=== PATIENT | male | born 1935 | race Caucasian/White ===

== ENCOUNTER 2016-10-21 10:23 | Emergency (ER) | payer MEDICARE, OTHER ==
[2016-10-21 11:05] VITALS: BP 187/109
--- NOTE | 2016-10-21 11:11 | EDM.PDOC ---
ED HPI GENERAL MEDICAL PROBLEM - General Chief Complaint: Lower Extremity Injury/Pain Stated Complaint: HURT LT BIG TOE Time Seen by Provider: 10/21/16 11:07 Source of Information: Reports: Patient History Limitations: Reports: No limitations - History of Present Illness INITIAL COMMENTS - FREE TEXT/NARRATIVE: pt stubbed his great left toe. It is bleeding around the nail and is very bruised Onset: today Duration: Hour(s): Location: Reports: lower extremity, left Associated Symptoms: Reports: denies other symptoms - Related Data Allergies Allergy/AdvReac Type Severity Reaction Status Date / Time No Known Allergies Allergy Verified 10/21/16 10:48 Home Meds: Home Meds Ascorbic Acid [Vitamin C] 1,000 mg PO DAILY 01/22/15 [History] Multivitamin [One Daily Multivitamin] 1 tab PO DAILY 01/22/15 [History] Omeprazole [Prilosec] 20 mg PO DAILY 01/22/15 [History] atorvaSTATin [Lipitor] 20 mg PO DAILY 01/22/15 [History] Past Medical History HEENT History: Reports: Cataract Cardiovascular History: Reports: Aneurysm Musculoskeletal History: Reports: Fracture Oncologic (Cancer) History: Reports: Other (see below) Other Oncologic History: skin Dermatologic History: Reports: Other (see below) Other Dermatologic History: skin cancer - Infectious Disease History Infectious Disease History: Reports: Other (see below) Other Infectious Disease History: unknown - Past Surgical History HEENT Surgical History: Reports: Cataract surgery, Tonsillectomy Cardiovascular Surgical History: Reports: AAA repair GI Surgical History: Reports: Appendectomy, Other (see below) Other GI Surgeries/Procedures: AAA repair Musculoskeletal Surgical History: Reports: Arthroscopic knee, Other (see below) Other Musculoskeletal Surgeries/Procedures:: back surgery Dermatological Surgical History: Reports: Skin biopsy Social & Family History - Tobacco Use Smoking Status *Q: Never Smoker Second Hand Smoke Exposure: No - Caffeine Use Caffeine Use: Reports: None - Alcohol Use Days Per Week of Alcohol Use: 7 Number of Drinks Per Day: 2 Total Drinks Per Week: 14 - Recreational Drug Use Recreational Drug Use: No Review of Systems - Review of Systems Review Of Systems: See Below Constitutional: Reports: no symptoms Eyes: Reports: no symptoms Ears: Reports: no symptoms Nose: Reports: no symptoms Mouth/Throat: Reports: no symptoms Respiratory: Reports: No Symptoms Cardiovascular: Reports: no symptoms GI/Abdominal: Reports: No symptoms Musculoskeletal: Reports: other (pt stubbed his left great toe and it is bleeding around the nail. ) Skin: Reports: no symptoms Trauma Exam - Physical Exam Exam: See Below Text/Narrative:: pt stubbed his left great toe. He now has bleeding around the nail and the toe is very bruised. Exam Limited By: No limitations General Appearance: Reports: alert Head: Reports: atraumatic Extremities: Other (left great toe has bleeding around the nail. The nail is slightly loose. It is a thickened nail with a fungus. A xray was obtained which revealed a chip type fracture off of the proximal portion of the distal phanlanx, . ) Course - Vital Signs Last Recorded V/S: Last Vital Signs Temp 36.1 C 10/21/16 10:50 Pulse 74 10/21/16 10:50 Resp 16 10/21/16 10:50 BP 187/109 H 10/21/16 10:50 Pulse Ox 96 10/21/16 10:50 - Orders/Labs/Meds Orders: Active Orders 24 hr Category Date Time Status Vaccines to be Administered [RC] PER UNIT ROUTINE Care 10/21/16 11:27 Active Toes Great Toe Lt TA [CR] Stat Exams 10/21/16 11:04 Taken Meds: Medications Discontinued Medications Generic Name Dose Route Start Last Admin Trade Name Roseann PRN Reason Stop Dose Admin Bacitracin 1 dose 10/21/16 11:37 Bacitracin Oint 1 Gm TOP 10/21/16 11:38 ONETIME ONE Diphtheria/Tetanus/Acell Pertussis 0.5 ml 10/21/16 11:27 Adacel IM 10/21/16 11:28 .ONCE ONE - Re-Assessments/Exams Free Text/Narrative Re-Assessment/Exam: 10/21/16 11:42 toe was dressed with bacatracin and shen tapped to the toe next to it. He will wear sandals. Departure - Departure Time of Disposition: 11:43 Disposition: Home, Self-Care 01 Condition: fair Clinical Impression: Fracture of great toe, left, closed, Injury of nail bed of toe - Discharge Information Forms: ED Department Discharge Care Plan Goals: soak foot juan diego, apply bacatracin to area and keep covered tape to the great toe next to it. keflex 500 mg tid for 1 week. Use tylenol and motrin for pain. - My Orders Last 24 Hours: My Active Orders 10/21/16 11:04 Toes Great Toe Lt TA [CR] Stat 10/21/16 11:27 Vaccines to be Administered [RC] PER UNIT ROUTINE - Assessment/Plan Last 24 Hours: My Active Orders 10/21/16 11:04 Toes Great Toe Lt TA [CR] Stat 10/21/16 11:27 Vaccines to be Administered [RC] PER UNIT ROUTINE
[2016-10-21] MEDS ORDERED: Diphtheria,Pertussis(Acell),Tetanus Vaccine 0.5 ML SDV IM ONE (11:27)
[2016-10-21] MEDS ORDERED: Bacitracin Oint 1 GM U/D Packet TOP ONE (11:37)
--- NOTE | 2016-10-21 11:45 | CR ---
Left first toe Findings: On the lateral view there is a dorsal avulsion fracture at the base of the distal phalanx. There is no flexion deformity. Impression: 1. Avulsion fracture at the dorsal base of the distal phalanx first toe.
== END 2016-10-21 12:15 | disposition home or self-care (01) ==
LOC: JP.ED 10:23
DX: S92.422A Displaced fracture of distal phalanx of left great toe, initial encounter for closed fracture (principal); Z85.828 Personal history of other malignant neoplasm of skin; Z98.49 Cataract extraction status, unspecified eye; Z98.890 Other specified postprocedural states; Z79.899 Other long term (current) drug therapy; X58.XXXA Exposure to other specified factors, initial encounter
CPT/HCPCS: 73660; 90471; 90715; 99283; 99284; A4217